=== PATIENT | female | born 2000 | race Caucasian/White ===

== ENCOUNTER 2022-07-19 09:37 | Emergency (ER) | payer OTHER ==
[~2022-07-19] VITALS: Ht 152.4 cm; Wt 69.4 kg
[2022-07-19] MEDS ORDERED: OSEL75CA PO (11:59)
[2022-07-19] MEDS ORDERED: TUSSIN DM SYRU118 ML PO (11:59)
== END 2022-07-19 12:24 | disposition home or self-care (01) ==
LOC: ER 09:37
DX: B34.9 Viral infection, unspecified (principal); J10.1 Influenza due to other identified influenza virus with other respiratory manifestations; Z91.018 Allergy to other foods; Z20.822 Contact with and (suspected) exposure to COVID-19